=== PATIENT | male | born 2000 | race American Indian/Alaskan Native ===

== ENCOUNTER 2020-11-04 12:29 | Emergency (ER) | payer MEDICAID ==
[2020-11-04 12:36] VITALS: BP 130/83
--- NOTE | 2020-11-04 13:35 | Emergency Department Report ---
Minor Respiratory - HPI Chief Complaint: Upper Respiratory Infection Stated Complaint: COUGH Time Seen by Provider: 11/04/20 13:34 Duration: 3 Days Pain Location: Chest Severity: moderate Minor Respiratory: Yes Able to Tolerate Fluids, Yes Cough, No Rhinorrhea, No Sore Throat, No Ear Pain, No Sick Contacts, No Hemoptysis, No Chest Pain, No Shortness of Breath, No Fever Other History: This is a 20-year-old male with no prior medical conditions who presents to ED complaining of intermittent coughing for the past 4 days. Patient denies all other symptoms. Patient states that is a dry nonproductive cough. Patient does report a history of asthma in the past. Patient takes no medications for any medical conditions. ED Review of Systems ROS: Stated complaint: COUGH Other details as noted in HPI Comment: All other systems reviewed and negative ED Past Medical Hx - Past Medical History Hx Asthma: Yes - Surgical History Additional Surgical History: I&D TO CHEST - Social History Smoking Status: Never Smoker Substance Use Type: Marijuana - Medications Home Medications: Home Medications Medication Instructions Recorded Confirmed Last Taken Type Acetamin/Codeine 120-12Mg/5 ml 5 ml PO TID PRN #80 ml 11/04/20 Unknown Rx [Tylenol/Codeine] Albuterol Mdi (or & Nicu Only) 2 puff IH PRN PRN #1 pump 11/04/20 Unknown Rx [ProAir HFA Inhaler] Benzonatate [Tessalon Perles] 100 mg PO Q8HR #20 capsule 11/04/20 Unknown Rx Minor Respiratory Exam - Exam General: Vital signs noted. No distress. Alert and acting appropriately. HEENT: Yes Moist Mucous Membranes, No Pharyngeal Erythema, No Pharyngeal Exudates, No Rhinorrhea, No Conjuctival Injection, No Frontal Tenderness, No Maxillary Tenderness Ear: Neither TM Bulge, Neither TM Erythema, Neither EAC Pain, Neither EAC Discharge Neck: Yes Supple, No Adenopathy Lungs: Yes Good Air Exchange, No Wheezes, No Ronchi, No Stridor, No Cough, No Labored Respirations, No Retractions, No Use of Accessory Muscles, No Other Abnormal Lung Sounds Heart: Yes Regular, No Murmur Abdomen: Yes Normal Bowel Sounds, No Tenderness, No Peritoneal Signs Skin: No Rash, No Edema Neurologic: Alert and oriented, no deficits. Musculoskeletal: Unremarkable. ED Course Vital Signs 11/04/20 12:34 Temperature 99.8 F H Pulse Rate 83 Respiratory 20 Rate Blood Pressure 130/83 O2 Sat by Pulse 96 Oximetry ED Medical Decision Making - Radiology Data Radiology results: report reviewed, image reviewed CHEST 2 VIEWS INDICATION / CLINICAL INFORMATION: cough/fever. COMPARISON: None available. FINDINGS: SUPPORT DEVICES: None. HEART / MEDIASTINUM: No significant abnormality. LUNGS / PLEURA: No significant pulmonary or pleural abnormality. No pneumothorax. ADDITIONAL FINDINGS: No significant additional findings. IMPRESSION: 1. No acute findings. Signer Name: Antoni Pabon MD Signed: 11/04/2020 1:57 PM Workstation Name: [id number] Transcribed By: Dictated By: ANTONI PABON III Electronically Authenticated By: ANTONI PABON III Signed Date/Time: 11/04/20 1128 - Medical Decision Making 30-year-old male presents with upper respiratory symptoms most likely secondary to bronchitis no fever during the ED stay. Discussed with patient symptomatic relief with [id number] medications. Discussed with patient COVID-19 testing is appropriate and mandatory and should be done as soon as possible. Discussed with patient for 14-day quarantine if test is positive. Discussed worsening of symptoms patient should return to ED immediately. Patient oxygen saturation stayed at 98% on room air during exertion and after exertion. Discussed continue Tylenol as needed for fever and pain. Discussed increase fluids and diet intake. Discussed rest much needed. Discussed daily vitamin C for immune booster. Discussed follow-up with [facility] physician in 3-5 days. Patient verbally states she understands and will comply the following inst ructions and follow-up Vital signs stable. Patient is in no acute distress Critical care attestation.: If time is entered above; I have spent that time in minutes in the direct care of this critically ill patient, excluding procedure time. ED Disposition Clinical Impression: Bronchitis Disposition: DC-01 TO HOME OR SELFCARE Is pt being admited?: No Does the pt Need Aspirin: No Condition: Stable Instructions: Chronic Bronchitis (ED), Upper Respiratory Infection, Adult, [id number] Additional Instructions: Make sure to follow up with the primary care physician as discussed. Take all your medications as you've been prescribed. If you have any worsening symptoms or develop new symptoms please return to ED immediately. Referrals: [facility] [Outside] - 3-5 Days [facility] [Outside] - 3-5 Days Forms: Work/School Release Form(ED) Time of Disposition: 14:15
--- NOTE | 2020-11-04 14:02 | XRay Report ---
CHEST 2 VIEWS INDICATION / CLINICAL INFORMATION: cough/fever. COMPARISON: None available. FINDINGS: SUPPORT DEVICES: None. HEART / MEDIASTINUM: No significant abnormality. LUNGS / PLEURA: No significant pulmonary or pleural abnormality. No pneumothorax. ADDITIONAL FINDINGS: No significant additional findings. IMPRESSION: 1. No acute findings. Signer Name: Antoni Pabon MD Signed: 11/04/2020 1:57 PM Workstation Name: [id number]
== END 2020-11-04 14:45 | disposition home or self-care (01) ==
LOC: ED 12:29
DX: J40 Bronchitis, not specified as acute or chronic (principal); F12.90 Cannabis use, unspecified, uncomplicated; Z79.899 Other long term (current) drug therapy; Z98.890 Other specified postprocedural states
CPT/HCPCS: 71046